=== PATIENT | male | born 1965 | race Caucasian/White ===

== ENCOUNTER 2019-02-01 01:46 | Emergency (ER) | payer OTHER, MEDICARE ==
--- NOTE | 2019-02-01 02:02 | ERPHSYRPT ---
- History of Present Illness Time Seen by Provider: 02/01/19 01:48 Historian: patient Exam Limitations: no limitations Patient Subjective Stated Complaint: chest pain Physician History: for the past hour pt has had constant sharp left anterior chest pain, shortness of air, nausea and vomiting x1. Aspirin Treatment Today: 81 mg x 4, provided by ED Allergies/Adverse Reactions: No Known Drug Allergies Allergy (Unverified 02/01/19 02:19) Home Medications: Amlodipine Besylate 10 mg PO DAILY 02/01/19 [History] Atorvastatin Calcium [Lipitor] 20 mg PO DAILY 02/01/19 [History] Benazepril HCl 20 mg PO DAILY 02/01/19 [History] Hydrocodone Bit/Acetaminophen [Hydrocodon-Acetaminophn 10-325] 10 - 325 mg PO Q6H PRN PRN 02/01/19 [History] - Review of Systems Respiratory: Dyspnea Cardiac: Chest Pain Abdominal/Gastrointestinal: Nausea, Vomiting All Other Systems: Reviewed and Negative - Nursing Vital Signs Nursing Vital Signs: Initial Vital Signs Temperature 98.8 F 02/01/19 01:47 Pulse Rate 74 02/01/19 01:47 Respiratory Rate 20 02/01/19 01:47 Blood Pressure 139/54 02/01/19 01:47 O2 Sat by Pulse Oximetry 97 02/01/19 01:47 Pain Scale Pain Intensity 6 - Physical Exam General Appearance: alert, anxiety Eye Exam: PERRL/EOMI Ears, Nose, Throat Exam: pharynx normal, moist mucous membranes Neck Exam: normal inspection Respiratory Exam: lungs clear Cardiovascular Exam: normal heart sounds Gastrointestinal/Abdomen Exam: soft, normal bowel sounds Extremity Exam: other (superficial abrasions on right foot dorsum.) Neurologic Exam: alert Skin Exam: No cyanosis SpO2 Interpretation: normal SpO2: 97 - Course Nursing assessment & vital signs reviewed: Yes EKG Interpreted by Me: RATE (75), NORMAL AXIS, Other (sinus arrhythmia.) Ordered Tests: Active Orders 24 hr Category Date Time Status EKG-ER Only STAT Care 02/01/19 01:54 Active EKG-ER Only STAT Care 02/01/19 03:04 Active IV Insertion STAT Care 02/01/19 01:54 Active Pulse Oximetry (ED) STAT Care 02/01/19 01:54 Active CHEST 2 VIEWS (PA AND LAT) Stat Exams 02/01/19 03:06 Ordered AMYLASE Stat Lab 02/01/19 02:27 Completed CBC W DIFF Stat Lab 02/01/19 02:27 Completed CMP Stat Lab 02/01/19 02:27 Completed D-DIMER QUANTITATION Stat Lab 02/01/19 02:27 Completed LIPASE Stat Lab 02/01/19 02:27 Completed NT PRO BNP Stat Lab 02/01/19 02:27 Completed TROPONIN Q3H Lab 02/01/19 02:27 Completed TROPONIN Q3H Lab 02/01/19 03:12 Completed TROPONIN Q3H Lab 02/01/19 05:00 Ordered TROPONIN Q3H Lab 02/01/19 06:15 Ordered TROPONIN Q3H Lab 02/01/19 08:00 Ordered TROPONIN Q3H Lab 02/01/19 09:15 Ordered TROPONIN Q3H Lab 02/01/19 11:00 Ordered TROPONIN Q3H Lab 02/01/19 12:15 Ordered TROPONIN Q3H Lab 02/01/19 14:00 Ordered TROPONIN Q3H Lab 02/01/19 15:15 Ordered UA W/RFX UR CULTURE Stat Lab 02/01/19 01:57 Uncollected Urine Triage Profile Stat Lab 02/01/19 01:55 Uncollected Medication Summary Discontinued Medications Generic Name Dose Route Start Last Admin Trade Name Freq PRN Reason Stop Dose Admin Aspirin 324 mg 02/01/19 01:54 02/01/19 02:39 Baby Aspirin 81 Mg Chew PO 02/01/19 01:55 324 mg STAT ONE Administration Aspirin Confirm 02/01/19 02:34 Baby Aspirin 81 Mg Chew Administered 02/01/19 02:35 Dose 324 mg .ROUTE .STK-MED ONE Nitroglycerin 0.4 mg 02/01/19 01:54 02/01/19 02:39 Nitrostat 0.4 Mg (Ed) SL 02/01/19 01:55 0.4 mg STAT ONE Administration Nitroglycerin Confirm 02/01/19 02:35 Nitrostat 0.4 Mg (Ed) Administered 02/01/19 02:36 Dose 0.4 mg SL .STK-MED ONE Nitroglycerin 0.4 mg 02/01/19 03:04 02/01/19 03:00 Nitrostat 0.4 Mg (Ed) SL 02/01/19 03:05 0.4 mg STAT ONE Administration Ondansetron HCl 4 mg 02/01/19 01:54 02/01/19 02:39 Zofran 4 Mg/2 Ml Vial IV 02/01/19 01:55 4 mg STAT ONE Administration Ondansetron HCl Confirm 02/01/19 02:35 Zofran 4 Mg/2 Ml Vial Administered 02/01/19 02:36 Dose 4 mg .ROUTE .STK-MED ONE Lab/Rad Data: Laboratory Result Diagrams 02/01/19 02:27 02/01/19 02:27 Laboratory Results 02/01/19 02/01/19 02/01/19 Range/Units 03:12 02:27 02:27 WBC (4.0-10.5) K/mm3 RBC (4.1-5.6) M/mm3 Hgb (12.5-18.0) gm/dl Hct (42-50) % MCV (78-100) fl MCH (26-32) pg MCHC (32-36) g/dl RDW (11.5-14.0) % Plt Count (150-450) K/mm3 MPV (6-9.5) fl Gran % (36.0-66.0) % Eos # (Auto) (0-0.5) Absolute Lymphs (auto) (1.0-4.6) Absolute Monos (auto) (0.0-1.3) Lymphocytes % (24.0-44.0) % Monocytes % (0.0-12.0) % Eosinophils % (0.00-5.0) % Basophils % (0.0-0.4) % Absolute Granulocytes (1.4-6.9) Basophils # (0-0.4) D-Dimer 382 (215-500) ng/mL Sodium (137-145) mmol/L Potassium (3.5-5.1) mmol/L Chloride (98-107) mmol/L Carbon Dioxide (22-30) mmol/L Anion Gap (5-15) MEQ/L BUN (9-20) mg/dL Creatinine (0.66-1.25) mg/dL Estimated GFR ML/MIN Glucose (74-106) mg/dL Calcium (8.4-10.2) mg/dL Total Bilirubin (0.2-1.3) mg/dL AST (17-59) U/L ALT (0-50) U/L Alkaline Phosphatase (38-126) U/L Troponin I < 0.012 < 0.012 (0.000-0.034) ng/mL NT-Pro-B Natriuret Pep (0-900) pg/mL Serum Total Protein (6.3-8.2) g/dL Albumin (3.5-5.0) g/dL Amylase (30-110) U/L Lipase (23-300) U/L 02/01/19 02/01/19 Range/Units 02:27 02:27 WBC 9.4 (4.0-10.5) K/mm3 RBC 4.64 (4.1-5.6) M/mm3 Hgb 13.8 (12.5-18.0) gm/dl Hct 42.4 (42-50) % MCV 91.4 (78-100) fl MCH 29.7 (26-32) pg MCHC 32.5 (32-36) g/dl RDW 13.8 (11.5-14.0) % Plt Count 59 L (150-450) K/mm3 MPV 11.6 H (6-9.5) fl Gran % 78.6 H (36.0-66.0) % Eos # (Auto) 0.07 (0-0.5) Absolute Lymphs (auto) 1.31 (1.0-4.6) Absolute Monos (auto) 0.62 (0.0-1.3) Lymphocytes % 14.0 L (24.0-44.0) % Monocytes % 6.6 (0.0-12.0) % Eosinophils % 0.7 (0.00-5.0) % Basophils % 0.1 (0.0-0.4) % Absolute Granulocytes 7.34 H (1.4-6.9) Basophils # 0.01 (0-0.4) D-Dimer (215-500) ng/mL Sodium 139 (137-145) mmol/L Potassium 3.9 (3.5-5.1) mmol/L Chloride 105 (98-107) mmol/L Carbon Dioxide 22 (22-30) mmol/L Anion Gap 16.0 H (5-15) MEQ/L BUN 19 (9-20) mg/dL Creatinine 0.72 (0.66-1.25) mg/dL Estimated GFR > 60.0 ML/MIN Glucose 107 H (74-106) mg/dL Calcium 9.7 (8.4-10.2) mg/dL Total Bilirubin 0.60 (0.2-1.3) mg/dL AST 28 (17-59) U/L ALT 30 (0-50) U/L Alkaline Phosphatase 65 (38-126) U/L Troponin I (0.000-0.034) ng/mL NT-Pro-B Natriuret Pep 23.2 (0-900) pg/mL Serum Total Protein 7.2 (6.3-8.2) g/dL Albumin 4.5 (3.5-5.0) g/dL Amylase 78 (30-110) U/L Lipase 45 (23-300) U/L - Progress Progress Note: 02/01/19 04:01 repeat ekg @ 0330: nsr @ 73. repeat troponin @ 0312: < 0.012. - Departure Departure Disposition: Home, Shelter/Snf Clinical Impression: Chest pain, Anxiety Condition: Fair Critical Care Time: No Referrals: KELLY ALEGRIA [Primary Care Provider] - Instructions: Atypical Chest Pain
[2019-02-01 02:30] LABS: BASOPHIL % 0.1 % (0.0-0.4); Basophil (Absolute #) 0.01 (0-0.4); Eosinophil % 0.7 % (0.00-5.0); Eosinophil (Absolute #) 0.07 (0-0.5); Granulocyte Absolute (ANC) 7.34 (1.4-6.9); Granulocytes % 78.6 % (36.0-66.0); Hematocrit 42.4 % (42-50); Hemoglobin 13.8 gm/dl (12.5-18.0); Lymphocyte (Absolute #) 1.31 (1.0-4.6); Mean Cell Volume 91.4 fl (78-100); Mean Corpuscular Hemoglobin 29.7 pg (26-32); Mean Corpuscular Hgb Concent. 32.5 g/dl (32-36); Mean Platelet Volume 11.6 fl (6-9.5); Monocyte (Absolute #) 0.62 (0.0-1.3); Monocytes % 6.6 % (0.0-12.0); Platelet Count 59 K/mm3 (150-450); Red Blood Count 4.64 M/mm3 (4.1-5.6); Red Cell Distribution Width 13.8 % (11.5-14.0); White Blood Count 9.4 K/mm3 (4.0-10.5)
[2019-02-01] MEDS ORDERED: BABY ASPIRIN 81 MG CHEW ONE (02:34)
[2019-02-01] MEDS ORDERED: Nitrostat 0.4 MG (ED) SL ONE (02:35)
[2019-02-01] MEDS ORDERED: Zofran 4 MG/2 ML VIAL ONE (02:35)
[2019-02-01] MEDS: Nitrostat 0.4 MG (ED) SL ONE ×2 (02:39→03:00)
[2019-02-01] MEDS: Zofran 4 MG/2 ML VIAL IV ONE (02:39)
[2019-02-01] MEDS: BABY ASPIRIN 81 MG CHEW PO ONE (02:39)
[2019-02-01 02:51] LABS: ALBUMIN 4.5 g/dL (3.5-5.0); ALKALINE PHOSPHATASE 65 U/L (38-126); AMYLASE 78 U/L (30-110); BLOOD UREA NITROGEN 19 mg/dL (9-20); CHLORIDE 105 mmol/L (98-107); Calcium 9.7 mg/dL (8.4-10.2); Carbon Dioxide 22 mmol/L (22-30); Creatinine 1 0.72 mg/dL (0.66-1.25); Glucose 107 mg/dL (74-106); LIPASE 45 U/L (23-300); NT PRO BNP 23.2 pg/mL (0-900); Potassium 3.9 mmol/L (3.5-5.1); SGOT/AST 28 U/L (17-59); SGPT/ALT 30 U/L (0-50); SODIUM 139 mmol/L (137-145); Total Protein 7.2 g/dL (6.3-8.2)
[2019-02-01 04:05] LABS: Slide Review 1 YES
[2019-02-01 04:08] VITALS: BP 125/70; PULSE 67; O2SAT 96
== END 2019-02-01 04:15 | disposition home or self-care (01) ==
LOC: EEVIPCON 01:46 → ED 01:46
DX: R07.9 Chest pain, unspecified (principal); F41.9 Anxiety disorder, unspecified
CPT/HCPCS: 36000; 36415; 80053; 82150; 83690; 83880; 84484; 85025; 85379; 93005; 94760; 96374; 99284; J2405; A9270-GY